=== PATIENT | female | born 2000 | race Caucasian/White ===

== ENCOUNTER 2023-12-05 21:32 | Emergency (ER) | payer OTHER ==
[~2023-12-05] VITALS: Ht 162.6 cm; Wt 63.0 kg
[2023-12-05 22:22] VITALS: O2SAT 97
[2023-12-05 23:22] LABS: BASOPHILS % 0.1 % (0.0-2.0); HEMATOCRIT. 40.5 % (36.0-48.0); HEMOGLOBIN. 14.1 g/dL (12.0-16.0); LYMPHOCYTES % 7.6 % (20.0-50.0); MEAN CORPUSCULAR HEMOGLOBIN 31.6 pg (28.0-32.0); MEAN CORPUSCULAR HGB CONC 34.8 g/dL (31.0-37.0); MEAN CORPUSCULAR VOLUME 90.8 fL (81.0-99.0); MEAN PLATELET VOLUME 8.5 fl (7.4-10.4); MONOCYTES % 5.1 % (2.0-8.0); NEUTROPHILS % 87.2 % (40.0-76.0); PLATELET 234 x1000/uL (130-400); RED BLOOD CELL COUNT 4.46 mill/uL (4.2-5.4); RED CELL DISTRIBUTION WIDTH 12.7 % (11.6-14.6); WHITE BLOOD COUNT 9.9 x1000/uL (4.5-11.0)
[2023-12-05 23:30] LABS: CARBON DIOXIDE 25 mEq/L (21-32); CHLORIDE 102 mEq/L (98-107); POTASSIUM 3.4 mEq/L (3.5-5.1); SODIUM 134 mEq/L (136-145)
[2023-12-05 23:31] LABS: CALCIUM 9.1 mg/dL (8.7-10.4)
[2023-12-05 23:36] LABS: CREATININE 0.7 mg/dL (0.6-1.0); GLUCOSE 122 mg/dL (70-105); UREA NITROGEN BLOOD 13 mg/dL (9-23)
[2023-12-05 23:38] LABS: ALANINE AMINOTRANSFERASE 12 IU/L (10-49); ALBUMIN 4.7 g/dL (3.2-4.8); ASPARTATE AMINOTRANSFERASE 22 IU/L (<34); BILIRUBIN DIRECT 0.3 mg/dL (<=3.0); BILIRUBIN TOTAL 0.7 mg/dL (0.1-1.0); PROTEIN TOTAL 7.4 g/dL (6.0-8.3)
[2023-12-05] MEDS: ONDANSETRON HCL 4MG/2ML INJ IV NR (23:54)
[2023-12-06] MEDS: SODIUM CHLORIDE 0.9% 1,000 ML IV ONE (01:26)
[2023-12-06] MEDS: FAMOTIDINE 20MG/2ML VIAL IV NR (01:26)
[2023-12-06] MEDS: KETOROLAC 15MG/ML VIAL IV NR (01:27)
[2023-12-06] MEDS ORDERED: ONDA4TAB11 PO (02:17)
[2023-12-06 02:37] VITALS: BP 130/65; PULSE 87; RESP 14; TEMP 98.1
[2023-12-06 03:32] LABS: HCG SCREEN NEGATIVE
== END 2023-12-06 02:45 | disposition home or self-care (01) ==
LOC: ER 21:46
DX: R19.7 Diarrhea, unspecified (principal); R10.9 Unspecified abdominal pain; K92.0 Hematemesis
CPT/HCPCS: 99284; 96374; 80076; 80048; 83690; 85025; 36415; 96375; 96361; 84703; J3490; J1885; J2405